=== PATIENT | female | born 1980 | race Caucasian/White ===

== ENCOUNTER → 2017-09-22 | Outpatient (CLI) | payer OTHER ==
[~2017-09-22] MED LIST: ADDERALL20 MG PO; ATIVAN0.5 MG PO; EFFEXOR XR150 MG; EFFEXOR75 MG PO; LOPRESSOR25 MG PO; METHADONE; MOBIC7.5 MG PO; NAPROSYN500 MG PO; TRAMADOL HCL50 MG PO; TRAZODONE HCL150 MG PO; ULTRAM50 MG PO; UNISOM SLEEP AI25 MG PO
[2017-09-22 16:35] LABS: CSF PROTEIN 38 mg/dL (15-45)
[2017-09-22 16:41] LABS: GLUCOSE, CSF 50 mg/dL (40-80)
[2017-09-22 16:56] LABS: APPEARANCE CLEAR/COLORLESS; CSF TUBE NUMBER TUBE #1; RED CELL COUNT 11 /MM^3 (0-1); WHITE CELL COUNT 1 /MM^3 (0-5)
[2017-09-22 17:23] LABS: SPINAL FLD COMMENT NO CELLS SEEN
[2017-09-22 19:57] LABS: CSF TUBE NUMBER (RECHECK) TUBE #3
[2017-09-22 19:59] LABS: RED CELL COUNT (RECHECK) 0 /MM^3 (0-1)
[2017-09-22 20:02] LABS: APPEARANCE (RECHECK) CLEAR/COLORLESS
== END | disposition home or self-care (01) ==
LOC: RAD 14:53
PROVIDERS: Psychiatry & Neurology Neurology
PROC: 009U3ZZ Drainage of Spinal Canal, Percutaneous Approach (ICD-10-PCS; principal; 2017-09-22)
DX: G43.001 Migraine without aura, not intractable, with status migrainosus (principal)
CPT/HCPCS: 62270; 77003; 82945; 84157; 87070; 87205; 89051